=== PATIENT | male | born 1985 | race Caucasian/White ===

== ENCOUNTER 2018-11-21 15:54 | Emergency (ER) | payer SELFPAY ==
[~2018-11-21] VITALS: Ht 177.8 cm; Wt 74.8 kg
[~2018-11-21 15:54] MED LIST: TRAM-21 PO
[2018-11-21] MEDS ORDERED: HURRICAINE EXT TUBE (BENZOCAINE) ONE (16:15)
[2018-11-21] MEDS ORDERED: KETOROLAC 60 MG/2 ML VIAL IM ONE (16:30)
[2018-11-21] MEDS ORDERED: LIDOCAINE 2% VISCOUS 15 ML UDC PO ONE (16:30)
[2018-11-21 16:35] VITALS: BP 148/83
--- NOTE | 2018-11-21 16:36 | ED EENT ---
History of Present Illness General Chief Complaint: Dental Problems/Pain Stated Complaint: DENTAL PAIN Nursing Triage Note: Pt to ED with c/o dental pain in the second to last tooth on the upper R side. Pt reports being at [facility] today to have tooth pulled. Pt reports tooth broke during procedure and [facility] said they could not extract tooth. Pt reports being given a referral to [place] and told to set up a Go Fund [employer] account. Pt reports being given a prescription for Amoxicillin, but nothing for pain. Pt reports 10/10 pain. Source: patient Exam Limitations: no limitations History of Present Illness Date Seen by Provider: Nov 21, 2018 Time Seen by Provider: 16:15 Initial Comments 33-year-old male who presents to the emergency room with complaints of right upper sided dental pain. He was being evaluated to stay at [facility] dental clinic to have his tooth pulled but reports the tooth broke off during procedure and they could not extract the remainder of the tooth. He was referred to a oral surgeon in [place] to have the remainder of the tooth pulled. He reports being prescribed amoxicillin for infection but given nothing for pain. Denies fevers. Location: dental Associated Symptoms: tooth pain Allergies and Home Medications Allergies Uncoded Allergies: NKDA (Allergy, Mild, 12/14/08) Home Medications Hydrocodone Bit/Acetaminophen 1 Tab Tab, 1 EACH PO Q4-6HR PRN for PAIN-MODERATE Prescribed by: RUBÉN FLAHERTY on 11/21/18 1637 Tramadol Hcl 50 Mg Tablet, 50 MG PO Q4-6HRS PRN Prescribed by: LOTTIE FELIX on 12/14/08 0208 Patient Home Medication List Home Medication List Reviewed: Yes Review of Systems Review of Systems Constitutional: see HPI; No chills, No fever Mouth: see HPI, pain All Other Systems Reviewed Negative Unless Noted: Yes Past Hmuogko-Rohpth-Bhqlyc Hx Past Med/Social Hx: Reviewed Nursing Past Med/Soc Hx Patient Social History Alcohol Use: Denies Use Recreational Drug Use: No Smoking Status: Current Everyday Smoker Type Used: Cigarettes 2nd Hand Smoke Exposure: Yes Recent Foreign Travel: No Contact w/Someone Who Travel: No Recent Infectious Disease Expo: No Recent Hopitalizations: No Seasonal Allergies Seasonal Allergies: Yes Past Medical History Surgeries: No Respiratory: No Cardiac: No Neurological: No Genitourinary: No Gastrointestinal: No Musculoskeletal: No Endocrine: No HEENT: No Cancer: Yes Breast Did You Recieve Any Treatments: Yes What Type of Treatment Did You: Chemotherapy Psychosocial: No Integumentary: No Blood Disorders: No Family Medical History Reviewed Nursing Family Hx Physical Exam Vital Signs Vital Signs - First Documented 11/21/18 16:00 Temp 98.2 Pulse 84 Resp 22 B/P (MAP) 148/83 (104) Pulse Ox 97 O2 Delivery Room Air Height, Weight, BMI Height: 5'10.00" Weight: 165lbs. oz. 74.335610nb; BMI Method:Stated General Appearance: WD/WN, no apparent distress Mouth/Throat: normal mouth inspection Cardiovascular: normal peripheral pulses, regular rate, rhythm, no edema, no gallop, no JVD, no murmur Respiratory: chest non-tender, lungs clear, normal breath sounds, no respiratory distress, no accessory muscle use Neurologic/Psychiatric: alert, normal mood/affect, oriented x 3 Skin: normal color, warm/dry Progress/Results/Core Measures Results/Orders My Orders Orders - RUBÉN FLAHERTY Im/Sub-Q Injection Non-Ab Ed (11/21/18 ) Medications Given in ED Vital Signs/I&O Blood Pressure Mean: 93 Departure Impression Primary Impression: Dental caries Disposition: HOME, SELF-CARE Condition: Stable/Unchanged Departure-Patient Inst. Decision time for Depature: 16:35 [facility] [place] Primary Care Physician Patient Instructions: Tooth Abscess (DC) Add. Discharge Instructions: Continue your antibiotics as prescribed. You may use Tylenol and ibuprofen as directed by the bottle for pain relief. For pain unrelieved by Tylenol and ibuprofen you may use the hydrocodone as prescribed. Do not exceed your daily limit of Tylenol 4000 mg. Follow-up with your primary care provider/dentist within 1 week for recheck. Return back to the emergency room for worsening symptoms or concerns as needed. All discharge instructions reviewed with patient and/or family. Voiced understanding. Scripts Hydrocodone Bit/Acetaminophen (Hydrocodone/Acetaminophen 5/325mg Tablet) 1 Tab Tab 1 EACH PO Q4-6HR PRN for PAIN-MODERATE MDD 10 for 3 Days, #10 TAB Prov: RUBÉN FLAHERTY 11/21/18 Images Mouth/Nose 1 - Fracture Tooth, Tenderness RUBÉN FLAHERTY Nov 21, 2018 16:36
[2018-11-21] MEDS ORDERED: ACHD5005 PO (16:37)
--- OUTSIDE RECORDS SUMMARY | 2018-11-21 17:51 | XMS REPORT ---
Author Author NABOR MIRANDA Organization [facility] Address [address] [place] [address] Care Team Providers Care Formulation Chemist Name Role Phone NABOR MIRANDA Unavailable PROBLEMS Type Condition ICD9-CM Code [id number] Code Onset Dates Condition Status SNOMED Code Problem Screening examination for venereal disease V74.5 Active 125844391 ALLERGIES Unknown Allergies SOCIAL HISTORY No smoking Hx information available PLAN OF CARE VITAL SIGNS MEDICATIONS Medication Instructions Dosage Frequency Start Date End Date Duration Status Mirtazapine 15 MG Orally Once a day 1 tablet at bedtime 24h Jun, 30 day(s) Active RESULTS No Results PROCEDURES No Known procedures IMMUNIZATIONS No Known Immunizations
--- OUTSIDE RECORDS SUMMARY | 2018-11-21 17:51 | XMS REPORT | Continuity of Care Document ---
Author Organization Unknown Address Unknown Allergies Active Description Code Type Severity Reaction Onset Reported/Identified Relationship to Patient Clinical Status Yes nkda [id number] DRUG N/A N/A Yes No Known Allergies No Known Allergies Drug Allergy Unknown N/A 08/20/2015 Medications Medication Packaging Start Date Stop Date Route Dosage Sig Zoloft oral 09/06/2016 oral 50 mg Problems Date Dx Coded Attending Type Code Diagnosis Diagnosed By 02/11/2013 V74.5 STD SCREEN 09/01/2016 Alessandra Brennan, Magdiel Sutherland F17.210 NICOTINE DEPENDENCE, CIGARETTES, UNCOMPLICATED 09/01/2016 Alessandra Brennan, Magdiel Sutherland F41.0 PANIC DISORDER WITHOUT AGORAPHOBIA 09/01/2016 Magdiel Aparicio M.D. R06.02 SHORTNESS OF BREATH 09/01/2016 Magdiel Aparicio M.D. Z87.898 PERSONAL HISTORY OF OTHER SPECIFIED CONDITIONS Procedures Code [place] [address] GC/CHLAM URINE (STATE) 02/13/2013 Results There is no data. Encounters ACCT No. Visit Date/Time Discharge Status Pt. Type Provider Facility Loc./Unit Complaint [id number] 04/21/2014 15:33:39 04/21/2014 23:59:59 [facility] Outpatient CLARKE MILLER [id number] 02/11/2013 09:01:00 Document Registration [id number] 09/05/2016 00:00:00 DIS Unknown KRISTA NICHOLSON [id number] 08/20/2015 10:18:00 08/20/2015 11:01:00 DIS Emergency Jose Eduardo MCKEON, [facility] E.ED [id number] 09/01/2016 16:36:00 09/01/2016 17:50:00 DIS Emergency Alessandra Brennan, Magdiel Dailey [facility] D.ER
--- OUTSIDE RECORDS SUMMARY | 2018-11-21 17:51 | XMS REPORT ---
Author Author Migration, Doctor Organization [facility] Address Unknown Phone Unavailable Care Team Providers Care Breaking Machine Operator Name Role Phone Migration, Doctor Unavailable Unavailable PROBLEMS Type Condition ICD9-CM Code LIT12-BM Code Onset Dates Condition Status SNOMED Code Problem Screening examination for venereal disease V74.5 Active [id number] ALLERGIES No Information ENCOUNTERS Encounter Location Date Diagnosis [facility] [id number], [place] [id number] Jan, Dental examination Z01.20 [facility] [address] [address] Jun, [facility] [address] [address] Sep, [facility] [address] [address] Sep, [facility] [address] [address] Feb, [facility] [address] [address] Jan, IMMUNIZATIONS No Known Immunizations SOCIAL HISTORY Never Assessed [place] [place] VITAL SIGNS MEDICATIONS Medication Instructions Dosage Frequency Start Date End Date Duration Status Flagyl 500 mg 4 tablet by Oral route every day Take with full glass of water. No alcohol intake advised for 48 hours. Jan, Active RESULTS No Results PROCEDURES No Known procedures INSTRUCTIONS MEDICATIONS ADMINISTERED No Known Medications
--- OUTSIDE RECORDS SUMMARY | 2018-11-21 17:51 | XMS REPORT ---
Author Author Migration, Doctor Organization [facility] Address Unknown Phone Unavailable Care Team Providers Care Baggage Handling Supervisor Name Role Phone Migration, Doctor Unavailable Unavailable PROBLEMS Type Condition ICD9-CM Code EQV85-DY Code Onset Dates Condition Status SNOMED Code Problem Screening examination for venereal disease V74.5 Active [id number] ALLERGIES No Information ENCOUNTERS Encounter Location Date Diagnosis [facility] [id number] [id number] Jan, Dental examination Z01.20 [facility] [address] [place] [address] Jun, [facility] [address] [address] Sep, [facility] [address] [address] Sep, [facility] [id number] [place] [address] Feb, [facility] [id number] [place] [address] Jan, IMMUNIZATIONS No Known Immunizations SOCIAL HISTORY Never Assessed [place] [place] VITAL SIGNS MEDICATIONS Unknown Medications RESULTS No Results PROCEDURES No Known procedures INSTRUCTIONS MEDICATIONS ADMINISTERED No Known Medications
== END 2018-11-21 16:35 | disposition home or self-care (01) ==
LOC: EDUNIT# 15:54 → ER 15:55
DX: K02.9 Dental caries, unspecified (principal); F17.210 Nicotine dependence, cigarettes, uncomplicated; Z85.3 Personal history of malignant neoplasm of breast; Z92.21 Personal history of antineoplastic chemotherapy
CPT/HCPCS: 96372; 99283